=== PATIENT | male | born 1960 | race African-American/Black ===

== ENCOUNTER 2020-05-04 20:13 | Emergency (ER) | payer BC ==
[2020-05-04 20:24] VITALS: BP 157/86; PULSE 99; TEMP 98.5; BMI 37.0
[2020-05-04 21:41] LABS: HEMATOCRIT 38.5 % (35.4-49); LYMPH % 21.9 % (8-40); MCH 29.5 pg (25.7-33.7); MCHC 33.7 g/dl (32.0-35.9); MEAN CELL VOLUME 87.4 fl (80-96); MEAN PLT VOLUME 8.1 fl (7.5-11.1); MONO % 11.2 % (3.8-10.2); NEUT % 63.9 % (42.8-82.8); PLATELET COUNT 304 K/MM3 (134-434); RBC 4.41 M/mm3 (4.00-5.60); WHITE BLOOD COUNT 7.8 K/mm3 (4.0-10.0)
[2020-05-04 21:47] LABS: INR 0.89 (0.83-1.09); PROTHROMBIN TIME (PATIENT) 10.5 SEC (9.7-13.0)
[2020-05-04 21:50] LABS: ALBUMIN 3.9 g/dl (3.4-5.0); BILIRUBIN,TOTAL 0.2 mg/dL (0.2-1); BLOOD UREA NITROGEN 36.4 mg/dL (7-18); CALCIUM 9.3 mg/dL (8.5-10.1); CREATININE 2.3 mg/dL (0.55-1.3); POTASSIUM 3.9 mmol/L (3.5-5.1); TOT PROT 8.8 g/dl (6.4-8.2)
--- NOTE | 2020-05-04 22:24 | PDOC ---
History of Present Illness - General Chief Complaint: Edema Stated Complaint: SWOLLEN FEET Time Seen by Provider: 05/04/20 20:55 History Source: Patient Exam Limitations: No Limitations - History of Present Illness Initial Comments: 05/04/20 22:19 Patient is a 60-year-old male with history of HTN here with complaints of bilateral leg swelling since today. States the only unusual food was oysters 2 to 3 days ago and then today. He denies any leg pain or injury, recent travel, chest pain, shortness of breath, prior episode of leg swelling, changes in his diet-salty foods, DVT/PE. PMD: Dr. Amaya PMHX: as above PSOCHX: neg cig, etoh, drug ALL: NKDA GENERAL/CONSTITUTIONAL: [No fever or chills. No weakness. No weight change.] HEAD, EYES, EARS, NOSE AND THROAT: [No change in vision. No ear pain or discharge. No sore throat.] CARDIOVASCULAR: [No chest pain or shortness of breath.] RESPIRATORY: [No cough, wheezing, or hemoptysis.] GASTROINTESTINAL: [No nausea, vomiting, diarrhea or constipation. No rectal bleeding.] GENITOURINARY: [No dysuria, frequency, or change in urination.] MUSCULOSKELETAL: [No joint or muscle swelling or pain. No neck or back pain.] SKIN AND BREASTS: [No rash or easy bruising.] NEUROLOGIC: [No headache, vertigo, loss of consciousness, or loss of sensation.] PSYCHIATRIC: [No depression or anxiety.] ENDOCRINE: [No increased thirst. No abnormal weight change.] HEMATOLOGIC/LYMPHATIC: [No anemia, easy bleeding, or history of blood clots.] ALLERGIC/IMMUNOLOGIC: [No hives or skin allergy. No latex allergy.] GENERAL: [The patient is awake, alert, and fully oriented, in no acute distress.] HEAD: [Normal with no signs of trauma.] EYES: [Pupils equal, round and reactive to light, extraocular movements intact, sclera anicteric, conjunctiva clear.] ENT: [Ears normal, nares patent, oropharynx clear without exudates. Moist mucous membranes.] NECK: [Normal range of motion, supple without lymphadenopathy, JVD, or masses.] LUNGS: [Breath sounds equal, clear to auscultation bilaterally. No wheezes, and no crackles.] HEART: [Regular rate and rhythm, normal S1 and S2 without murmur, rub.] ABDOMEN: [Soft, nontender, normoactive bowel sounds. No guarding, no rebound. No masses.] EXTREMITIES: [Normal range of motion, marked edema right > left. No clubbing or cyanosis. No cords, erythema, or tenderness.] NEUROLOGICAL: [Cranial nerves II through XII grossly intact. Normal speech, normal gait.] PSYCH: [Normal mood, normal affect.] SKIN: [Warm, Dry, normal turgor, no rashes or lesions noted.] Past History - Medical History Allergies/Adverse Reactions: Allergies Allergy/AdvReac Type Severity Reaction Status Date / Time No Known Allergies Allergy Verified 07/17/16 18:45 Home Medications: Ambulatory Orders NK [No Known Home Medication] 07/17/16 COPD: No HTN: Yes Other medical history: herniated disc - Psycho-Social/Smoking History Smoking History: Never smoked - Substance Abuse Hx (Audit-C & DAST Scrn) How often the patient has a drink containing alcohol: Never Score: In Men: 4 or > Positive; In Women: 3 or > Positive: 0 Screen Result (Pos requires Nsg. Audit-10AR): Negative In the last yr the pt used illegal drug/Rx for NonMed reason: No Score: Yes response is considered Positive: 0 Screen Result (Positive result requires Nsg. DAST-10): Negative *Physical Exam - Vital Signs Last Vital Signs Temp Pulse Resp BP Pulse Ox 98.5 F 99 H 19 157/86 98 05/04/20 20:22 05/04/20 20:22 05/04/20 20:22 05/04/20 20:22 05/04/20 20:22 ED Treatment Course - LABORATORY CBC & Chemistry Diagram: 05/04/20 21:10 05/04/20 21:10 - ADDITIONAL ORDERS Additional order review: Laboratory Results 05/04/20 05/04/20 21:10 21:10 PT with INR 10.50 INR 0.89 Sodium 138 Potassium 3.9 Chloride 105 Carbon Dioxide 25 Anion Gap 8 BUN 36.4 H Creatinine 2.3 H Est GFR (CKD-EPI)AfAm 34.48 Est GFR (CKD-EPI)NonAf 29.75 Random Glucose 106 Calcium 9.3 Total Bilirubin 0.2 AST 27 ALT 30 Alkaline Phosphatase 58 Total Protein 8.8 H Albumin 3.9 05/04/20 21:10 RBC 4.41 MCV 87.4 MCHC 33.7 RDW 14.0 MPV 8.1 Neutrophils % 63.9 Lymphocytes % 21.9 Monocytes % 11.2 H Eosinophils % 2.0 Basophils % 1.0 - RADIOLOGY Radiology Studies Ordered: Category Date Time Status CHEST PA & LAT [RAD] Stat Radiology 05/04/20 21:03 Taken DUPLEX VASCUL US-2LEGS [US] Stat Ultrasound 05/04/20 21:03 Taken Medical Decision Making - Medical Decision Making 05/04/20 22:19 Patient is a 60-year-old male with history of HTN here with complaints of bilateral leg swelling since today. States the only unusual food was oysters 2 to 3 days ago and then today. He denies any leg pain or injury, recent travel, chest pain, shortness of breath, prior episode of leg swelling, changes in his diet-salty foods, DVT/PE, kidney disease. Patient with leg edema will check labs for kidney functioning, Chest x-ray: Small pleural effusion right, no cardiomegaly. 05/04/20 22:27 Labs reviewed noted to have a creatinine of 2.3 Will admit patient for [place] Laboratory Tests 05/04/20 05/04/20 05/04/20 21:10 21:10 21:10 WBC 7.8 Hgb 13.0 Hct 38.5 Plt Count 304 PT with INR 10.50 INR 0.89 Sodium 138 Potassium 3.9 Chloride 105 Carbon Dioxide 25 Anion Gap 8 BUN 36.4 H Creatinine 2.3 H B-Natriuretic Peptide 42.5 05/04/20 23:14 Patient Full Name: ORLIN HASSAN Patient Accession No: [id number] Patient : 1960 Reason for Exam: leg swelling r/o dvt Referring Physician: Patient Name: SONYA ORDAZ THIS IS A PRELIMINARY REPORT DATE OF SERVICE: 2020-05-04 21:05:29 IMAGES: 38 EXAM: BILATERAL LOWER EXTREMITY VENOUS ULTRASOUND: HISTORY: Leg swelling COMPARISON: None. TECHNIQUE: Duplex venous doppler sonographic images were obtained of the bilateral lower extremities. FINDINGS: Bilateral lower extremity venous ultrasound shows intact common femoral, superficial femoral and popliteal veins. Normal augmentation and compression is evident in these venous segments. No intraluminal thrombus seen. IMPRESSION: NO EVIDENCE FOR DVT. THIS DOCUMENT HAS BEEN ELECTRONICALLY SIGNED Sherie Lujan MD 05/04/2020 22:05 EST MJaydenD. Please call Imaging Pool Table Operator [phone] ([phone]) with questions. INTERPRETING RADIOLOGIST: Sherie Lujan MD Electronically Signed: May 04, 2020 10:06PM EDT Labs reviewed noted that the patient had [place] a creatinine of 2.3. He gives no history of kidney disease. Recommended admission to the hospital but patient refused stating that he had childcare issues and was unable to stay in the hospital. I signed patient out AMA but instructed him to follow-up with his primary care doctor in the morning for further evaluation and management. Discharge - Discharge Information Problems reviewed: Yes Clinical Impression/Diagnosis: [place] (acute kidney injury) Edema Qualifiers: Edema type: unspecified Qualified Code(s): R60.9 - Edema, unspecified Condition: Fair Disposition: AGAINST MEDICAL ADVICE - Follow up/Referral - Patient Discharge Instructions - Post Discharge Activity
[2020-05-04 22:40] LABS: N-TERMINAL BNP 42.5 pg/ml (5-125)
== END 2020-05-04 22:52 | disposition left against medical advice (07) ==
LOC: JER 20:13
DX: R60.9 Edema, unspecified (principal); N17.9 Acute kidney failure, unspecified
CPT/HCPCS: 36415; 71046-TC-FY; 80053; 83880; 85025; 85610; 93970-TC; 99285-25